=== PATIENT | female | born 1985 | race Caucasian/White ===

== ENCOUNTER 2025-01-27 03:40 | Outpatient (CLI) | payer BC, SELFPAY ==
[2025-01-27 12:34] LABS: Abs Immature Grans 0.01 10^3/uL (0.0-0.06); HCT 37.9 % (36.0-46.0); HGB 12.5 g/dL (11.2-15.7); Immature Grans % 0.2 %; MCH 31.4 pg (27.0-33.0); MCHC 33.0 % (32.0-36.0); MCV 95 fL (80-95); MPV 12.0 fL (8.0-11.0); Platelet Count 185 10^3/uL (130-400); RBC 3.98 10^6/uL (3.93-5.22); RDW 12.3 % (11.7-14.6); RDW-SD 42.8 fL; WBC 6.01 10^3/uL (4.4-10.8)
[2025-01-27 12:56] LABS: TSH (W/Ref FT4) 0.40 uIU/mL (0.36-3.74)
[2025-01-27 12:58] LABS: Hemoglobin A1C 5.0 % (<5.7)
[2025-01-27 22:55] LABS: HIV-1/2 Ag & Ab Screen Negative (Negative)
[2025-01-27 22:57] LABS: Hepatitis C Ab w Rflx HCV PCR Negative (Negative)
[2025-01-28 10:16] LABS: Rubella IgG Ab (UVM) Positive (See Note)
[2025-01-29 18:29] LABS: Syphilis IgG w/Reflex Nonreactive (Nonreactive)
== END 2025-01-27 03:41 | disposition home or self-care (01) ==
LOC: LBO 03:40
PROVIDERS: PCP Physician Assistant Medical; Visit Provider Advanced Practice Midwife
DX: Z34.91 Encounter for supervision of normal pregnancy, unspecified, first trimester (principal); Z86.32 Personal history of gestational diabetes; O09.521 Supervision of elderly multigravida, first trimester
CPT/HCPCS: 36415; 86787; 86803; 86850; 86900; 86901; 87340; 87389; 83036; 84443; 85025; 86762; 86780

== ENCOUNTER 2025-01-27 12:05 | Outpatient (REF) | payer BC, SELFPAY ==
--- NOTE | 2025-01-27 11:35 | PAPFT_PTH ---
PATIENT: Zoila Panchal LOC: [facility] U#:[id number] AGE/SX: 39/F ROOM: RE01/27/[address]: Amee Escalante : 1985 BED: DIS: 01/27/2025 SPEC #: [id number] RECD: 01/27/25 16:15 STATUS: JACQUELINE REQ #: [id number] ELIZABETH: 01/27/25 11:[address]: Amee Escalante DEPT: [facility] Cytology RECD BY: Anne-Marie Cortez ENTERED: 01/27/25 16:16 SP TYPE: PAPFT OTHR DR: Pk Garrido Jay Edward Tissues: 1 - CX/ENDOCX FOR PAP SMEARS Procedures: PAP THIN PREP/[facility] Screening HPV DNA PROBE Comments: [id number] (HPV 16 & 18/45) (CHLAMYDIA/GC)
[2025-01-28 12:26] LABS: Chlamydia Result Negative (Negative); GC Result Negative (Negative)
== END 2025-01-27 12:06 | disposition home or self-care (01) ==
LOC: LBN 12:05
PROVIDERS: PCP Physician Assistant Medical; Visit Provider Advanced Practice Midwife
DX: Z34.92 Encounter for supervision of normal pregnancy, unspecified, second trimester (principal); Z3A.12 12 weeks gestation of pregnancy
CPT/HCPCS: 87491; 87591; 88142; 87086; 87624

== ENCOUNTER 2025-05-04 06:00 | Observation (INO) | payer BC, SELFPAY ==
[2025-05-04] VITALS (15 sets, daily range): BP systolic 97–110; BP diastolic 54–60; PULSE 54–74; RESP 18; TEMP 36.8–36.9; O2SAT 95–100
--- NOTE | 2025-05-04 | DI.MRI_ITS ---
Exam(s) MR ABDOMEN WO MR PELVIS WO EXAM: MR ABDOMEN WO CLINICAL HISTORY: sudden onset abdominal pain TECHNIQUE: Multiplanar multisequence MRI of the Abdomen was performed. MRCP sequences also performed. COMPARISON: MR MR PELVIS WO from 05/04/2025 FINDINGS: There is an intrauterine gestation which is not evaluated on this exam. Lung bases: Unremarkable. Liver: Unremarkable. Gallbladder: Not visualized. Bile Ducts: Unremarkable. Pancreas: Unremarkable. Adrenals: Unremarkable. Kidneys: Unremarkable. Spleen: Unremarkable. Aorta: Unremarkable. Soft Tissues: Unremarkable. Bone: Unremarkable. Lymph Nodes: Unremarkable. Mesentery:Trace amount of fluid seen around the liver and in low pelvis. No focal fluid collection. Bowel: Mildly dilated loops of small bowel seen centrally in the abdomen. No bowel wall thickening. No abnormal gastric distension. Increased quantity of stool noted from the cecum through descending colon. Bladder: Nearly empty but unremarkable. IMPRESSION: Mildly dilated loops of small bowel in the central abdomen without definite evidence of obstruction. No wall thickening. No evidence of appendicitis. Increased stool noted from the cecum through descending colon consistent with constipation. DATA REPOSITORY:
[2025-05-04] MEDS: Metoclopramide 10 MG/2 ML VIAL IVP (06:27)
[2025-05-04 07:25] LABS: Abs Immature Grans 0.05 10^3/uL (0.0-0.06); HCT 35.6 % (36.0-46.0); HGB 11.9 g/dL (11.2-15.7); Immature Grans % 0.4 %; MCH 32.2 pg (27.0-33.0); MCHC 33.4 % (32.0-36.0); MCV 97 fL (80-95); MPV 10.8 fL (8.0-11.0); Platelet Count 212 10^3/uL (130-400); RBC 3.69 10^6/uL (3.93-5.22); RDW 13.0 % (11.7-14.6); RDW-SD 45.6 fL; WBC 13.02 10^3/uL (4.4-10.8)
[2025-05-04 07:29] LABS: Magnesium 1.8 mg/dL (1.8-2.4)
[2025-05-04 07:47] LABS: ALT 19 U/L (14-59); AST 28 U/L (15-37); Albumin 2.5 g/dL (3.4-5.0); Alkaline Phosphatase 116 U/L (46-116); Amylase 82 U/L (25-115); Anion Gap 12.5 mmol/L (3-11); BUN 9 mg/dL (7-18); Bilirubin, Total 0.3 mg/dL (0.2-1.0); CO2 20.5 mmol/L (21.0-32.0); Calcium 9.1 mg/dL (8.5-10.1); Chloride 105 mmol/L (98-107); Glucose 100 mg/dL (74-106); Lipase 38 U/L (<78); Potassium 3.7 mmol/L (3.5-5.1); Sodium 138 mmol/L (136-145); Total Protein 6.3 g/dL (6.4-8.2)
[2025-05-04] MEDS: MYLANTA 30 ML, LIDOCAINE 2% VISCOUS UD 15 ML PO (08:31)
[2025-05-04] MEDS: Pantoprazole 40 MG VIAL IVP (08:31)
--- NOTE | 2025-05-04 08:40 | W.PM.OBHPL1 ---
Date of service: 05/04/25 Time of Service: 07:00 Assessment and Plan Assessment and plan (1) Abdominal pain affecting : Status: Acute (2) Nausea and vomiting in : Status: Acute Assessment and plan: Pt is a 39yo @26.2wks GA (dated by 1st trimester sono due to uncertain LMP) who presents with sudden onset of abdominal pain, nausea and vomiting. It has been minimally responsive to ondansetron, reglan and viscous lidocaine/malox. Labs are essentially normal for . No evidence of labor, rupture of membranes or obvious placental issues. In the absence of her gall bladder and appendix, concerns include gastroenteritis, SBO or ileus, pancreatitis unlikely given normal labs, stomach issues such as ulcer. Due to her complicated surgical hx, will obtain Gen Sx consult and consider MRI for further evaluation of her abd/pelvis. Will be passing management on to Dr. Alcaraz. OB-HPI Labor/Delivery History of Present Illness Reason for Visit: NST Chief Complaint: Other (abdominal pain/nausea/vomiting). CHASE Calculator Estimated Delivery Date Method Current WG Current Estimate 08/09/25 Ultrasound #1 26w 1d Other Estimates 09/06/25 LMP (Uncertain) 22w 1d History of Present Expected Delivery Route/Plan - MD FOB/ - BB Specific Issues/Plan 1. AMA. cfDNA low risk male - [facility] MFM Consult and Level 2 US 03/19/2025; nml scan, no recommendatins per MFM - Completed full genetic carrier screening with [facility] (they are a genetic match). - ASA protocol: Pt has already started by time of New OB; Understands doesn't meet criteria, but ok. 2. 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 Vegan Diet: Pt aware to consume Protein, B12, Iron, Ca++ - Growth US at 32 and 36 weeks 4. COVID in (dx in 21 wks) 5. H/o SBO with bowel resection (in college), ruptured appendix (age 12), GB removal later as an adult Narrative: Pt woke with sudden onset of abdominal pain, nausea and vomiting around 1:30am. It continued for several hours so she arrived at the center around 5am. On arrival, she was visibly uncomfortable and vomiting. She says she had had 3 soft BMs since waking and was passing gas. She denies any bleeding, leaking fluid (other than some urine when she vomits). She is feeling movement. She describes the pain as primarily her central upper abdomen and slightly to the right though her whole abdomen is mildly uncomfortable. The pain is constant. It does not come and go like contractions. It is sharp, occasionally it has gone into her back. Since arrival she has felt slightly warm and cold, though no chills. She had nothing out of the ordinary for dinner last night - vege stir perkins. She is a vegan. No one else around her has had GI sxms recently. Review of Systems Constitutional Constitutional: Reports system reviewed and no additional complaints, except as documented Genitourinary Genitourinary: Reports system reviewed and no additional complaints, except as documented Musculoskeletal Comments: No regular contractions PFSH All Active Problems (Updated 05/04/25 @ 10:56 by Shauna Velazquez MD) Nausea and vomiting in (Acute) Abdominal pain affecting (Acute) Abdominal pain (Acute) Advanced maternal age in multigravida (Acute) Supervision of normal , antepartum (Acute) Medical History (Updated 05/04/25 @ 10:56 by Shauna Velazquez MD) History of gestational diabetes Vulvar hyperplasia Bowel obstruction 2005 Surgical History (Updated 01/07/25 @ 10:46 by Karolina Hadley RN) History of appendectomy 1997 History of cholecystectomy 2013 History of carpal tunnel surgery of left wrist H/O dilation and curettage 01/31/23- for incomplete miscarriage Social History Smoking risk assessment performed?: No History History 3 Para Hx # Term Pregnancies 1 Multiple births Hx # Pregnancies Ectopic pregnancies AB induced Hx Number of Living Children 1 AB spontaneous 1 Past Pregnancies Del. Date GA/Weeks # Preg Succ Route Wgt Sex Labor Lgth Anesthesia Location Prov Complic 12/13/20 38 No Yes vaginal 7 lb 7 oz Female [facility] 01/31/23 8 No Delivery Date: 01/31/23 Last Updated by: Karolina Hadley, RN D and C Meds Allergies and Home Medications Allergies Allergy/AdvReac Type Severity Reaction Status Date / Time No Known Allergies Allergy Verified 04/30/25 09:03 Home Medications Medication Instructions Recorded Confirmed Type vits no.126-ferrous fum tab PO 01/04/25 04/30/25 History 28 mg iron-folic acid 800 mcg tablet (Classic ) aspirin 81 mg tablet 81 mg PO DAILY 01/27/25 04/30/25 History calcium carbonate (Tums) 200 mg PO TID PRN 01/27/25 04/30/25 History Exam Physical Exam Vital signs: Pulse BP Pulse Ox 64 110/60 99 05/04/25 05:49 05/04/25 05:08 05/04/25 05:49 Vital Signs Reviewed: Yes Detailed Labor and Delivery Exam Johnson Score: Cervical Points Exam 0 1 2 3 Dilation Closed 1-2cm 3-4 cm 5-6cm Effacement 0-30% 40-50% 60-70% 80% Consistency Firm Medium Soft Station -3 -2 -1,0 +1,+2 Position Posterior Mid Anterior Fetus A Monitor Accelerations: Present Monitor Decelerations: None Variability: Moderate (6-25 BPM) Presentation: Cephalic Detailed HEENT Exam Head: Present normocephalic and atraumatic Detailed Abdominal Exam Comments: gravid, mildy tender across the whole abdomen with more significant tenderness upper central and to the right. No CVA tenderness. Detailed Back/Spine/Pelvis Exam Comments: Deferred pelvic exam at this point as her pain is primarily upper abdomen, she has no pelvic sxms and no e/o ctxs on the monitor. Detailed Neurological Exam Neurological: Present alert, oriented X3 and CN II-XII intact DetailedPsychiatric Exam Psychiatric: Present normal affect, normal thought process and cooperative Results Abnormal Lab Findings: Abnormal Labs 05/04/25 05/04/25 07:00 07:05 WBC 13.02 H RBC 3.69 L Hct 35.6 L MCV 97 H Absolute Neutrophils 11.78 H Absolute Lymphocytes 0.79 L Carbon Dioxide 20.5 L Anion Gap 12.5 H Creatinine 0.5 L Total Protein 6.3 L Albumin 2.5 L Risk Assessment Risk for Pre-Eclampsia Date Initiated/Initials: EO Yes, if 2 or more: POSITIVE FOR: Age>= 35 yrs Risks Reviewed Risks Reviewed Upon Admission: Yes WW Pocus Exam Exam testing Date/Time of Exam: Date of exam: 05/04/2025 Time of exam: 10:58 am CHASE Calculator Estimated Delivery Date Method Current WG Current Estimate 08/09/25 Ultrasound #1 26w 1d Other Estimates 09/06/25 LMP (Uncertain) 22w 1d Other Comments: Quick POCUS for evaluation of the placenta - which is normal appearing. Fetus is vertex presentation with good movement. Pt uncomfortable during ultrasound.
[2025-05-04] MEDS: Lactated Ringers 1,000 ML 150 ML IV ×2 (09:20→17:46)
--- NOTE | 2025-05-04 09:30 | PGE_ITS ---
Date of Service Date of service: 05/04/25 Time of Service: 09:30 Assessment and Plan Assessment and plan (1) Abdominal pain: Status: Acute Assessment and plan: 39 yo ( x1) as dated by 10 wk US (CHASE 08/09/2025) - Rh+ / Rub I / VZV I / GBS unknown - complicated by AMA, COVID in - - - - - - - - - - - - - - - 05/04/2025 at 0900 (Lissa): Recieved report from overnight physician. Ms. Panchal presented earlier this morning with sudden-onset RUQ abdominal pain that awake her from sleep around 0130 and persistent nausea and vomiting. She has a known h/o appendectomy for gangrenous appendix, cholecystectomy, and small bowel resection for bowel obstruction. Since beinging here, her pain and nausea have been refractory to fluid bolus, Zofran, Reglan, Mylanta / viscous lidocaine, and Pantoprazole. Her bloodwork is largely unremarkable (WBC appropriate for ; neg lipase, ALT/AST WNL). Patient was assessed at bedside. She is found resting on her left side and holding her pper abdomen. Tracing looks reassuring (reactive and reassuring for GA; no contractions). She denies leakage, bleeding, and reports good movement. Her abdomen is tender to touch along the upper abdomen, and moderately tense. We discussed hanging maintenance fluids and doppling heart tones q30 min (patient cannot tolerate straps on her abdomen). Morphine ordered for pain control and consult to general surgery pending given level of discomfort and abdominal exam. - - - - - - - - - - - - - - - Subjective Subjective Interval history since last seen: 39 yo ( x1) as dated by 10 wk US (CHASE 08/09/2025); sudden onset abdominal pain last night w/nausea / vomiting. Exam Narrative Exam Narrative: general: Well nourished female on her left side; uncomfortable but not rithing pulm: No overt respiratory distress abd: tender in the upper abdomen; moderate distension ext: No swelling FHT: Reactive and reassuring for GA [place]: quiet Objective Last Vital Signs Temp 98.4 F 05/04/25 09:07 Pulse 62 05/04/25 09:07 Resp 18 05/04/25 09:07 BP 97/54 L 05/04/25 09:07 Pulse Ox 98 05/04/25 09:07 Laboratory Results - last 24 hr 05/04/25 05/04/25 07:00 07:05 WBC 13.02 H RBC 3.69 L Hgb 11.9 Hct 35.6 L MCV 97 H MCH 32.2 MCHC 33.4 RDW 13.0 Plt Count 212 MPV 10.8 Immature Gran % 0.4 Neutrophils % 90.5 Lymphocytes % 6.1 Monocytes % 2.8 Eosinophils % 0.0 Basophils % 0.2 Nucleated RBC % 0.0 Absolute Neutrophils 11.78 H Absolute Lymphocytes 0.79 L Absolute Monocytes 0.36 Absolute Eosinophils 0.00 Absolute Basophils 0.03 Sodium 138 Potassium 3.7 Chloride 105 Carbon Dioxide 20.5 L Anion Gap 12.5 H BUN 9 Creatinine 0.5 L Est GFR (CKD-EPI 2020) 122.28 Glucose 100 Calcium 9.1 Magnesium 1.8 Total Bilirubin 0.3 AST 28 ALT 19 Alkaline Phosphatase 116 Total Protein 6.3 L Albumin 2.5 L Amylase 82 Lipase 38 Time Spent with Patient Time Spent with Patient: 25-34 minutes Time was spent: preparing to see the patient(eg.review tests), obtaining and/or reviewing separately otained hiistory, ordering medications,tests, procedures, referring, communicating with other health care navigator, counseling the patient and care coordination
--- NOTE | 2025-05-04 10:51 | W.SURGCON ---
Date of service: 05/04/25 Time of Service: 10:00 [facility] All Active Problems (Updated 05/04/25 @ 09:46 by Poonam Alcaraz DO) Abdominal pain (Acute) Advanced maternal age in multigravida (Acute) Supervision of normal , antepartum (Acute) History of gestational diabetes (Acute) Amenorrhea (Acute) Medical History (Updated 05/04/25 @ 09:46 by Poonam Alcaraz DO) Gestational diabetes Vulvar hyperplasia Bowel obstruction 2005 Surgical History (Updated 01/07/25 @ 10:46 by Karolina Hadley, ROSARIO) History of appendectomy 1997 History of cholecystectomy 2013 History of carpal tunnel surgery of left wrist H/O dilation and curettage 01/31/23- for incomplete miscarriage Social History Smoking risk assessment performed?: No History History 3 Para Hx # Term Pregnancies 1 Multiple births Hx # Pregnancies Ectopic pregnancies AB induced Hx Number of Living Children 1 AB spontaneous 1 Past Pregnancies Del. Date GA/Weeks # Preg Succ Route Wgt Sex Labor Lgth Anesthesia Location Prov Complic 12/13/20 38 No Yes vaginal 3373.593 g Female [facility] 01/31/23 8 No Delivery Date: 01/31/23 Last Updated by: Karolina Hadley, ROSARIO D and C Results Last Vital Signs Temp 36.9 C 05/04/25 09:07 Pulse 62 05/04/25 09:07 Resp 18 05/04/25 09:07 BP 97/54 L 05/04/25 09:07 Pulse Ox 98 05/04/25 09:07 Labs 05/04/25 07:00 05/04/25 07:05 Labs: Laboratory Results - last 24 hr 05/04/25 05/04/25 07:00 07:05 WBC 13.02 H RBC 3.69 L Hgb 11.9 Hct 35.6 L MCV 97 H MCH 32.2 MCHC 33.4 RDW 13.0 Plt Count 212 MPV 10.8 Immature Gran % 0.4 Neutrophils % 90.5 Lymphocytes % 6.1 Monocytes % 2.8 Eosinophils % 0.0 Basophils % 0.2 Nucleated RBC % 0.0 Absolute Neutrophils 11.78 H Absolute Lymphocytes 0.79 L Absolute Monocytes 0.36 Absolute Eosinophils 0.00 Absolute Basophils 0.03 Sodium 138 Potassium 3.7 Chloride 105 Carbon Dioxide 20.5 L Anion Gap 12.5 H BUN 9 Creatinine 0.5 L Est GFR (CKD-EPI 2020) 122.28 Glucose 100 Calcium 9.1 Magnesium 1.8 Total Bilirubin 0.3 AST 28 ALT 19 Alkaline Phosphatase 116 Total Protein 6.3 L Albumin 2.5 L Amylase 82 Lipase 38
--- NOTE | 2025-05-04 13:16 | DI.VRAD_ITS ---
PROCEDURE INFORMATION: Exam: MR Pelvis Without Contrast Exam date and time: 05/04/2025 11:41 AM Age: 39 years old Clinical indication: R/O small bowel obstruction patient has had small bowel obstruction in the past. Patient is baby does not need to be evaluated per [facility] radiologist. TECHNIQUE: Imaging protocol: Magnetic resonance imaging of the pelvis without contrast. COMPARISON: MR ABDOMEN WO 05/04/2025 11:09 AM FINDINGS: Intraperitoneal space: There is a small amount of free fluid in the pelvis. Urinary bladder: Bladder is unremarkable. Reproductive: The cervix is closed and measures 5.6 cm in length. Gravid uterus with fetus in cephalic position. Posterior placenta with no evidence of previa or abruption. Lymph nodes: No enlarged nodes. Bones/joints: Unremarkable. No suspicious lesions. No acute fractures. Soft tissues: Unremarkable. Majority of the bowel is displaced superiorly by gravid uterus filling the pelvis. No transition point is seen. Moderate constipation. IMPRESSION: Majority of the bowel is displaced superiorly by gravid uterus filling the pelvis. No transition point is seen. Moderate constipation. Gravid uterus. Dictated and Authenticated by: Afshan Chavez MD. Orderin Lissa Levin MD
--- NOTE | 2025-05-04 13:16 | DI.VRAD_ITS ---
PROCEDURE INFORMATION: Exam: MR Abdomen Without Contrast Exam date and time: 05/04/2025 11:41 AM Age: 39 years old Clinical indication: R/O small bowel obstruction patient has had small bowel obstruction in the past. Patient is baby does not need to be evaluated per [facility] radiologist. TECHNIQUE: Imaging protocol: Magnetic resonance imaging of the abdomen without contrast. COMPARISON: MR ABDOMEN WO 05/04/2025 11:09 AM FINDINGS: Liver: No mass. Gallbladder and biliary ducts: Not seen and may be contracted or absent. No ductal dilation. Pancreas: Unremarkable. No ductal dilation. Spleen: Unremarkable. No splenomegaly. Adrenal glands: Unremarkable. No mass. Kidneys: Unremarkable. No solid mass. No hydronephrosis. Stomach and bowel: A few moderately distended small bowel loops in the central upper abdomen measuring up to 3.2 cm in maximal diameter. No obvious transition zone. No evidence of enteritis or colitis. Moderate constipation noted. Normal appendix. Intraperitoneal space: Trace free fluid seen. Vasculature: No abdominal aortic aneurysm. Lymph nodes: No enlarged nodes. Bones/joints: Unremarkable. No suspicious lesions. Soft tissues: Unremarkable. IMPRESSION: No definite evidence for small bowel obstruction. Constipation. Dictated and Authenticated by: Afshan Chavez MD. Orderin Lissa Levin MD
--- NOTE | 2025-05-04 17:07 | SCONE_ITS ---
Date of service: 05/04/25 Time of Service: 17:07 Assessment and Plan Assessment and plan (1) Nausea and vomiting in : Status: Acute Assessment and plan: Patient is a 39-year-old female who was 26 weeks with history of prior appendectomy, cholecystectomy and bowel resection in the setting of a small bowel obstruction who presents with acute onset abdominal pain, nausea and vomiting. She notes primarily supraumbilical abdominal pain and episodes of vomiting this morning. She does note that she did have 3 bowel movements today and has continued to pass flatus. On exam she is afebrile and hemodynamically stable. She has tenderness to palpation in the supraumbilical aspect of her abdomen however no evidence of diffuse peritonitis. Her laboratory findings are normal in the setting of current . Given her abdominal exam and history an MRI was recommended for further evaluation. Her MRI and my review did show some evidence of some small bowel dilation however no gastric distention or upstream dilation. There was also evidence of significant stool burden mainly on the right side of the colon. She was reevaluated this afternoon with some improvement in her abdominal exam and no further episodes of vomiting. Her history and previous surgical history would be concerning for potential small bowel obstruction. She has however continued to pass flatus throughout the day and had bowel movements this morning. She does also have a significant stool burden on her imaging. Would recommend continuing n.p.o., monitoring abdominal exam, and continuing to monitor for bowel function. Pending stability and improvement in exam could advance diet slowly as tolerated. Would recommend bowel regimen in the setting of concerning findings for increased stool burden. (2) Abdominal pain affecting : Status: Acute History of Present Illness Narrative: The patient is a 39-year-old female who is admitted to the OB service with abdominal pain, nausea and vomiting. She reports waking up at 0115 hours with sharp abdominal pain, which was not alleviated by passing gas or changing positions. She experienced three episodes of soft stool, the third being larger but without any blood. She also vomited eight times before arriving at the hospital. The pain is constant and more central, with referred pain around the area where the baby is located. She has not passed gas recently but had three bowel movements this morning. Her last episode of vomiting was at 0800 hours. She also reports nausea and chills, but no fever. She felt hot during her episodes of dry heaving. She has a history of bowel obstruction but does not believe this is the cause of her current symptoms as she has had three bowel movements today. She had COVID- 19 a few weeks ago but was asymptomatic and tested negative subsequently. She is currently and has had no complications with her . She has vaginal varicosities and wears a sling for support. She is very active and eats a healthy diet. PAST SURGICAL HISTORY: Gangrenous ruptured appendix at age 12, bowel obstruction due to adhesions in 2001, and laparoscopic cholecystectomy for cholecystitis. Review of Systems Constitutional Constitutional: Denies fever(s), Denies headache(s) and Denies weakness Eyes Eyes: Denies change in vision ENT Ears, Nose, Mouth, and Throat: Denies dizziness, Denies headache(s), Denies nasal congestion and Denies sore throat Cardiovascular Cardiovascular: Denies chest pain and Denies dyspnea Respiratory Respiratory: Denies dyspnea Genitourinary Genitourinary: Denies dysuria Musculoskeletal Musculoskeletal: Denies arthralgias, Denies muscle weakness and Denies numbness Integumentary/Breasts Skin/Breast: Denies new lesions and Denies rash Neurologic Neurologic: Denies dizziness, Denies headache(s), Denies numbness and Denies weakness PFSH All Active Problems (Updated 05/04/25 @ 10:56 by Shauna Velazquez MD) Nausea and vomiting in (Acute) Abdominal pain affecting (Acute) Abdominal pain (Acute) Advanced maternal age in multigravida (Acute) Supervision of normal , antepartum (Acute) Medical History (Updated 05/04/25 @ 10:56 by Shauna Velazquez MD) History of gestational diabetes Vulvar hyperplasia Bowel obstruction 2005 Surgical History (Updated 01/07/25 @ 10:46 by Karolina Hadley RN) History of appendectomy 1998 History of cholecystectomy 2013 History of carpal tunnel surgery of left wrist H/O dilation and curettage 01/31/23- for incomplete miscarriage Social History Smoking risk assessment performed?: No History History 2 3 Para Hx # Term Pregnancies 1 Multiple births Hx # Pregnancies Ectopic pregnancies AB induced Hx Number of Living Children 1 AB spontaneous 1 Past Pregnancies Del. Date GA/Weeks # Preg Succ Route Wgt Sex Labor Lgth Anesth esia Location Prov Complic 12/13/20 38 No Yes vaginal 3373.593 g Female [facility] 01/31/23 8 No Delivery Date: 01/31/23 Last Updated by: Karolina Hadley, RN D and C Exam Narrative Exam Narrative: General: Well appearing, no acute distress. Skin: Good turgor, no visible rashes or lesion HEENT: Normocephalic, atraumatic CV: Regular rate Lungs: Bilateral equal chest rise, non-labored breathing Abdomen: non-distended, supraumbilical tenderness to palpation, no rebound or guarding, well healed abdominal incisions. Extremities: Warm, well perfused Neurologic: No focal deficits Psychiatric: Alert and oriented, normal mood and affect Results Last Vital Signs Temp 36.8 C 05/04/25 15:56 Pulse 61 05/04/25 15:56 Resp 18 05/04/25 09:07 BP 101/56 L 05/04/25 15:56 Pulse Ox 95 05/04/25 15:56 Labs 05/04/25 07:00 05/04/25 07:05 Labs: Laboratory Results - last 24 hr 05/04/25 05/04/25 07:00 07:05 WBC 13.02 H RBC 3.69 L Hgb 11.9 Hct 35.6 L MCV 97 H MCH 32.2 MCHC 33.4 RDW 13.0 Plt Count 212 MPV 10.8 Immature Gran % 0.4 Neutrophils % 90.5 Lymphocytes % 6.1 Monocytes % 2.8 Eosinophils % 0.0 Basophils % 0.2 Nucleated RBC % 0.0 Absolute Neutrophils 11.78 H Absolute Lymphocytes 0.79 L Absolute Monocytes 0.36 Absolute Eosinophils 0.00 Absolute Basophils 0.03 Sodium 138 Potassium 3.7 Chloride 105 Carbon Dioxide 20.5 L Anion Gap 12.5 H BUN 9 Creatinine 0.5 L Est GFR (CKD-EPI 2020) 122.28 Glucose 100 Calcium 9.1 Magnesium 1.8 Total Bilirubin 0.3 AST 28 ALT 19 Alkaline Phosphatase 116 Total Protein 6.3 L Albumin 2.5 L Amylase 82 Lipase 38 Imaging Additional studies: MRI Abdomen/Pelvis reviewed and report reviewed.
--- NOTE | 2025-05-04 17:50 | PGE_ITS ---
Date of Service Date of service: 05/04/25 Time of Service: 17:50 Assessment and Plan Assessment and plan (1) Nausea and vomiting after administration of anesthetic agent: Status: Acute Assessment and plan: 39 yo ( x1) as dated by 10 wk US (CHASE 08/09/2025) - Rh+ / Rub I / VZV I / GBS unknown - complicated by AMA, COVID in - - - - - - - - - - - - - - - 05/04/2025 at 0900 ([facility]): Recieved report from overnight physician. Ms. Panchal presented earlier this morning with sudden-onset RUQ abdominal pain that awake her from sleep around 0130 and persistent nausea and vomiting. She has a known h/o appendectomy for gangrenous appendix, cholecystectomy, and small bowel resection for bowel obstruction. Since beinging here, her pain and nausea have been refractory to fluid bolus, Zofran, Reglan, Mylanta / viscous lidocaine, and Pantoprazole. Her bloodwork is largely unremarkable (WBC appropriate for ; neg lipase, ALT/AST WNL). Patient was assessed at bedside. She is found resting on her left side and holding her pper abdomen. Tracing looks reassuring (reactive and reassuring for GA; no contractions). She denies leakage, bleeding, and reports good movement. Her abdomen is tender to touch along the upper abdomen, and moderately tense. We discussed hanging maintenance fluids and doppling heart tones q30 min (patient cannot tolerate straps on her abdomen). Morphine ordered for pain control and consult to general surgery pending given level of discomfort and abdominal exam. 05/04/2025 at 1800 ([facility]): Patient's pain has somewhat improved throughout the day, though she continues to complain of discomfort in the midline of her abdomen which she reports is worsened with palpation. Her MRI is without evidence of SBO or issues of blockage within the colon; I confirmed this via conversation with the radiologist, Dr. Bernardo. She reports thirst this evening. General surgery recommendations appreciated. We discussed Miralax to encourage continued evacuation of the heavy stool burden in her right colon. We will begin clear liquids 12 hours from the last time she vomited (9 am), and Reglan as an anti-emetic. We will continue advancement the following morning. NST's q shift. Patient is agreeable to this plan. - - - - - - - - - - - - - - - Subjective Subjective Interval history since last seen: Patient reports continued pain but improved. Last vomitted 0900. Cites thirst. Three BM's today. Exam Narrative Exam Narrative: general: Well nourished female resting comfortably on her back pulm: no overt respiratory distress abd: gravid, reports tenderness mid-upper abdomen ext: no swelling psych: cooperative, appropriate FHT: appropriate for GA [place]: silent Objective Last Vital Signs Temp 98.2 F 05/04/25 15:56 Pulse 61 05/04/25 15:56 Resp 18 05/04/25 09:07 BP 101/56 L 05/04/25 15:56 Pulse Ox 95 05/04/25 15:56 Laboratory Results - last 24 hr 05/04/25 05/04/25 07:00 07:05 WBC 13.02 H RBC 3.69 L Hgb 11.9 Hct 35.6 L MCV 97 H MCH 32.2 MCHC 33.4 RDW 13.0 Plt Count 212 MPV 10.8 Immature Gran % 0.4 Neutrophils % 90.5 Lymphocytes % 6.1 Monocytes % 2.8 Eosinophils % 0.0 Basophils % 0.2 Nucleated RBC % 0.0 Absolute Neutrophils 11.78 H Absolute Lymphocytes 0.79 L Absolute Monocytes 0.36 Absolute Eosinophils 0.00 Absolute Basophils 0.03 Sodium 138 Potassium 3.7 Chloride 105 Carbon Dioxide 20.5 L Anion Gap 12.5 H BUN 9 Creatinine 0.5 L Est GFR (CKD-EPI 2020) 122.28 Glucose 100 Calcium 9.1 Magnesium 1.8 Total Bilirubin 0.3 AST 28 ALT 19 Alkaline Phosphatase 116 Total Protein 6.3 L Albumin 2.5 L Amylase 82 Lipase 38 Time Spent with Patient Time Spent with Patient: 25-34 minutes Time was spent: preparing to see the patient(eg.review tests), obtaining and/or reviewing separately otained hiistory, ordering medications,tests, procedures, referring, communicating with other health critical care physician, indepentently interpreting results, counseling the patient and care coordination
[2025-05-04] MEDS: Polyethylene Glycol 3350 17 GM PACKET PO (20:13)
[2025-05-04 21:28] LABS: Glucose Negative (Negative)
--- NOTE | 2025-05-05 05:41 | NUR.NOTE ---
Nursing Note:Checked on patient multiple times throughout the night. Patient has been asleep and has not woken when checked on. Left multiple notes reminding her to ring when awake. Orders communicated through nursing report was to Doppler and check vital signs while awake. Will continue to monitor.
[2025-05-05 06:06] VITALS: BP 94/50; PULSE 57
[2025-05-05 06:39] VITALS: BP 94/52; PULSE 55
[2025-05-05 08:08] VITALS: BP 93/55; PULSE 58
--- NOTE | 2025-05-05 17:00 | DSE_ITS ---
Date of service: 05/05/25 Time of Service: 17:00 DS: Diagnosis Discharge Diagnosis (1) Nausea and vomiting after administration of anesthetic agent: Status: Acute Discharge Plan Disposition Patient Disposition: Home W/Home Health Services Condition: Good Discharge Details Reason For Visit: Nausea and Vomiting in Admit Date/Time: 05/04/25 06:00 Admit Provider: Poonam Alcaraz Attending Provider: Poonam Alcaraz Primary Care Provider: Brady Mckeon Hospital Course Hospital Course: Patient presented to labor and delivery on the morning of 05/04/2025 on the morning of 05/04/2025 with complaints of sudden onset abdominal pain and nausea and vomiting that awoke her from her sleep. She did not respond to conservative treatments (Protonix, Maalox, IV fluid bolus, antiemetics). General surgery was consulted given the extent of her discomfort and her notable surgical history. An abdominal MRI without contrast was performed and did not find any concerning pathology. She underwent bowel rest and was monitored overnight. The following morning, she tolerated regular diet without issue. She will follow-up in the office in a week. Home Meds and New Rx's Prescriptions: No Action Classic 28 mg iron- 800 mcg tablet PO calcium carbonate [Tums] 200 mg calcium (500 mg) tablet,chewable 200 mg PO TID PRN aspirin 81 mg tablet 81 mg PO DAILY Discharge Instructions Activity:: Activity as Tolerated Equipment/Supplies:: No Equipment Needed Diet:: Normal Diet Discharge Data Discharge Date/Time-TO BE ENTERED AT DEPARTURE: 05/05/25 13:29 OB:DS Summary Contraception Discussed Contraception Discussed: No, Status at Discharge Functional status at discharge: independent ambulation Overall status at discharge: patient is back to baseline Mental Status: mental status grossly normal Speech and Movement: speech and movement normal Mood: congruent mood Affect: normal affect Exam Physical Exam Vital signs: Temp Pulse Resp BP Pulse Ox 98.2 F 58 L 18 93/55 L 95 05/04/25 15:56 05/05/25 08:08 05/04/25 09:07 05/05/25 08:08 05/04/25 15:56 Narrative: general: Well nourished female in no immediate distress pulm: No overt respiratory distress abd: Gravid, soft, non-tender ext: No swelling psych: Appropriate, cooperative PFSH All Active Problems (Updated 06/03/25 @ 00:04 by MAGALYS GABRIEL) Nausea and vomiting during (Acute) Nausea and vomiting after administration of anesthetic agent (Acute) Abdominal pain affecting (Acute) Advanced maternal age in multigravida (Acute) Supervision of normal , antepartum (Acute) Medical History (Updated 06/03/25 @ 00:04 by MAGALYS GABRIEL) History of gestational diabetes Vulvar hyperplasia Bowel obstruction 2005 Surgical History (Updated 01/07/25 @ 10:46 by Karolina Hadley, ROSARIO) History of appendectomy 1997 History of cholecystectomy 2013 History of carpal tunnel surgery of left wrist H/O dilation and curettage 01/31/23- for incomplete miscarriage Social History Smoking risk assessment performed?: No History History 3 Para Hx # Term Pregnancies 1 Multiple births Hx # Pregnancies Ectopic pregnancies AB induced Hx Number of Living Children 1 AB spontaneous 1 Past Pregnancies Del. Date GA/Weeks # Preg Succ Route Wgt Sex Labor Lgth Anesth esia Location Prov [facility] [address] 12/13/20 38 No Yes vaginal 7 lb 7 oz Female [facility] 01/31/23 8 No Delivery Date: 01/31/23 Last Updated by: Karolina Hadley, RN D and C DS: Data Vitals/I&O Vitals and I&O: Vital Signs Temperature 98.2 F 05/04/25 15:56 Temperature Source Oral 05/04/25 15:56 Pulse 58 L 05/05/25 08:08 Pulse Rhythm Regular 05/04/25 20:00 Respiratory Rate 18 05/04/25 09:07 Respiratory Depth Normal 05/04/25 20:00 Blood Pressure 93/55 L 05/05/25 08:08 Blood Pressure Mean 68 05/04/25 09:07 Pulse Oximetry 95 05/04/25 15:56 Comment patient has had sharp abdominal since 0130 this morning with nausea and vomiting 05/04/25 09:08 Data Completed and Pending Pending Labs at Discharge: 05/04/25 05/04/25 05/04/25 07:00 07:05 17:00 WBC 13.02 H RBC 3.69 L Hgb 11.9 Hct 35.6 L MCV 97 H MCH 32.2 MCHC 33.4 RDW 13.0 Plt Count 212 MPV 10.8 Immature Gran % 0.4 Neutrophils % 90.5 Lymphocytes % 6.1 Monocytes % 2.8 Eosinophils % 0.0 Basophils % 0.2 Nucleated RBC % 0.0 Absolute Neutrophils 11.78 H Absolute Lymphocytes 0.79 L Absolute Monocytes 0.36 Absolute Eosinophils 0.00 Absolute Basophils 0.03 Sodium 138 Potassium 3.7 Chloride 105 Carbon Dioxide 20.5 L Anion Gap 12.5 H BUN 9 Creatinine 0.5 L Est GFR (CKD-EPI 2020) 122.28 Glucose 100 Calcium 9.1 Magnesium 1.8 Total Bilirubin 0.3 AST 28 ALT 19 Alkaline Phosphatase 116 Total Protein 6.3 L Albumin 2.5 L Amylase 82 Lipase 38 Urine Color Yellow Urine Clarity Clear Urine pH 7.5 Ur Specific [place] 1.020 Urine Protein Negative Urine Ketones >=160 H Urine Blood Negative Urine Nitrite Negative Urine Bilirubin Negative Urine Urobilinogen 0.2 Ur Leukocyte Esterase Negative Urine Glucose Negative
== END 2025-05-05 13:29 | disposition home health service (06) ==
LOC: BCD 06-01 04:30 → OBS 06-01 04:42
PROVIDERS: Obstetrics & Gynecology; Admitting Provider Obstetrics & Gynecology; PCP Family Medicine; Visit Provider Obstetrics & Gynecology
DX: O26.892 Other specified pregnancy related conditions, second trimester (principal); R10.9 Unspecified abdominal pain; O21.2 Late vomiting of pregnancy; Z3A.26 26 weeks gestation of pregnancy; O09.522 Supervision of elderly multigravida, second trimester; O22.12 Genital varices in pregnancy, second trimester
CPT/HCPCS: 36415; 80053; 83690; 72195; 74181; 81003; 82150; 83735; 85025; J2405; J2470; J2765

== ENCOUNTER → 2025-05-21 03:33 | Outpatient (CLI) | payer BC, SELFPAY ==
--- NOTE | 2025-05-21 07:30 | DI.US_ITS ---
Exam(s) US OB JARRETT WEIGHT EXAM: US OB JARRETT WEIGHT CLINICAL HISTORY: Growth US,nausea,vomiting,z34.93,. TECHNIQUE: Transabdominal obstetrical ultrasound performed. COMPARISON: No exams were available for comparison FINDINGS: Number of fetuses: 1 position: Cephalic. Placental location: There is a grade 1 fundal and posterior placenta. No evidence of previa. BIOMETRIC DATA: BPD: 7.47cm, 30weeks HC: 27.4cm, 29weeks 6days AC: 25.15cm, 29weeks 2days FL: 5.49cm, 29weeks EFW: 1,374.73g, 3lb 1.24oz, 66.3% Composite Age: 29weeks 4days CHASE: 08/02/2025 Heart Rate: 134bpm Amniotic fluid index: 17cm. The largest pocket measures 5.5 cm. IMPRESSION: 1. Single live intrauterine gestation as above. 2. Estimated weight is 1375gms. This is the 66th percentile. 3. Amniotic fluid index is 17 cm. The largest pocket measures 5.5 cm. DATA REPOSITORY:
== END ==
LOC: DI 03:33
PROVIDERS: PCP Family Medicine; Visit Provider Obstetrics & Gynecology
DX: Z34.93 Encounter for supervision of normal pregnancy, unspecified, third trimester (principal); O21.9 Vomiting of pregnancy, unspecified; Z3A.30 30 weeks gestation of pregnancy
CPT/HCPCS: 76816

== ENCOUNTER 2025-05-21 03:42 | Outpatient (CLI) | payer BC, SELFPAY ==
[2025-05-04 05:15] VITALS: BP 110/60; PULSE 61; RESP 20; TEMP 36.4
[2025-05-04] MEDS: Ondansetron 4 MG/2 ML VIAL IVP ×2 (05:22→06:07)
[2025-05-04] MEDS: Lactated Ringers 500 ML 999 ML IV (05:23)
[2025-05-21 11:02] LABS: Abs Immature Grans 0.04 10^3/uL (0.0-0.06); HCT 34.1 % (36.0-46.0); HGB 11.3 g/dL (11.2-15.7); Immature Grans % 0.4 %; MCH 31.8 pg (27.0-33.0); MCHC 33.1 % (32.0-36.0); MCV 96 fL (80-95); MPV 10.7 fL (8.0-11.0); Platelet Count 207 10^3/uL (130-400); RBC 3.55 10^6/uL (3.93-5.22); RDW 13.0 % (11.7-14.6); RDW-SD 45.7 fL; WBC 10.26 10^3/uL (4.4-10.8)
[2025-05-21 11:10] LABS: Glucose,1 Hr (Glucola) 127 mg/dL (80-140)
== END 2025-05-21 03:43 | disposition home or self-care (01) ==
LOC: LBO 03:42
PROVIDERS: Obstetrics & Gynecology; PCP Family Medicine; Visit Provider Obstetrics & Gynecology
DX: O09.523 Supervision of elderly multigravida, third trimester (principal)
CPT/HCPCS: 36415; 82950; 85025

== ENCOUNTER → 2025-07-02 01:23 | Outpatient (CLI) | payer BC, SELFPAY ==
--- NOTE | 2025-07-02 06:30 | DI.US_ITS ---
Exam(s) US OB JARRETT WEIGHT EXAM: US OB JARRETT WEIGHT CLINICAL HISTORY: Growth,advanced maternal age,O09.529. TECHNIQUE: Transabdominal obstetrical ultrasound performed. COMPARISON: US POCUS EXAM from 05/04/2025 US US OB JARRETT WEIGHT from 05/21/2025 FINDINGS:: Number of fetuses: 1 position: CEPHALIC Placental location: POSTERIOR, grade 2. No evidence of previa. BIOMETRIC DATA: BPD: 8.72 cm mm = 35+2 weeks HC: 31.83 cm mm = 35+ 6 weeks AC: 30.46 cm mm = 34+3 weeks FL: 6.42 cm mm = 33+1 weeks EFW: 2393.5 g, 36.6 % Composite Age: 34+5 CHASE: 29 May 2026 Heart Rate: 143 bpm Amniotic fluid index: 12.57 cm. Visually, amount of fluid is within normal limits. IMPRESSION: size and weight are within the expected range. DATA REPOSITORY:
== END ==
LOC: DI 01:23
PROVIDERS: PCP Family Medicine; Visit Provider Obstetrics & Gynecology
DX: O09.523 Supervision of elderly multigravida, third trimester (principal)
CPT/HCPCS: 76816

== ENCOUNTER 2025-07-09 09:44 | Outpatient (REF) | payer BC, SELFPAY | END 2025-07-09 09:45 | disposition home or self-care (01) | LOC: LBN 09:44 | PROVIDERS: PCP Family Medicine; Visit Provider Obstetrics & Gynecology | DX: O26.893 Other specified pregnancy related conditions, third trimester (principal); R10.9 Unspecified abdominal pain | CPT/HCPCS: 87081 ==

== ENCOUNTER 2025-07-16 07:32 | Outpatient (CLI) | payer BC, SELFPAY ==
[2025-07-16 09:09] VITALS: BP 102/67; PULSE 67
[2025-07-16 09:22] VITALS: BP 102/67; PULSE 67; TEMP 36.8
--- NOTE | 2025-07-16 16:57 | W.OBNST ---
Date of service: 07/16/25 Time of Service: 16:57 NST Evaluation Reason for NST Reasons for Nonstress Test: ADVANCED MATERNAL AGE Gestational Age Gestational Age in Weeks and Days: 36 Weeks and 4Days Test and Monitor Explained Test/Monitor Explained: Test Explained, Monitor Explained and Patient Verbalized Understanding Vital Signs Blood Pressure: 102/67 Pulse: 67 Temperature: 98.2 F NST Information Date on Monitor: 07/16/25 Time on Monitor: 09:07 Date off Monitor: 07/16/25 Time off Monitor: 09:35 Total Time on Monitor: 28 NST Interventions: None NST Evaluation Patient States Movement: Present FHR Baseline: 130 Variability: Moderate 6-25 bpm Accelerations: 15x15 Decelerations: None NST Results: Reactive Note Ultrasound Done: N/A. NST Note Note: Reactive and reassuring; patient to have repeat NST early next week per protocol. NST Reviewed and Verified by: Poonam Alcaraz
[2025-07-16 16:58] VITALS: BP 102/67; PULSE 67; TEMP 36.8
== END 2025-07-16 09:49 ==
LOC: BCD 07:32 → OBS 09:01
PROVIDERS: PCP Family Medicine; Visit Provider Obstetrics & Gynecology
DX: O09.523 Supervision of elderly multigravida, third trimester (principal); Z3A.36 36 weeks gestation of pregnancy
CPT/HCPCS: 59025